=== PATIENT | male | born 1960 | race American Indian/Alaskan Native ===

== ENCOUNTER 2020-08-21 06:00 | Observation (INO) | payer OTHER ==
[~2020-08-21 06:00] MED LIST: ACETAMINOPHEN 500 MG TAB PO SCH; GABAPENTIN 300 MG CAP PO NR; LACTATED RINGERS 1,000 ML IV SCH; ceFAZolin/Water 2 GM/20 ML 2 GM/20 ML SYRINGE IV NR
--- NOTE | 2020-08-21 06:53 | Anesthesia Day of Surgery ---
Anesthesia Day of Surgery - Day of Surgery Patient Examined: Yes Patient H&P Reviewed: Yes Patient is NPO: Yes
--- NOTE | 2020-08-21 06:53 | Anesthesia Consultation ---
Anesthesia Consult and Med Hx Date of service: 08/21/20 - Airway Anesthetic Teeth Evaluation: Good ROM Head & Neck: Inadequate (very limited neck extension) Mental/Hyoid Distance: Adequate Mallampati Class: Class II Intubation Access Assessment: Possibly Difficult - Pulmonary Exam CTA: Yes - Cardiac Exam Cardiac Exam: RRR - Pre-Operative Health Status ASA Pre-Surgery Classification: ASA2 Proposed Anesthetic Plan: General - Pulmonary Hx Smoking: No Hx Asthma: No COPD: No Hx Pneumonia: No Hx Sleep Apnea: No (SNORES) - Cardiovascular System Hx Hypertension: No Hx Heart Attack/AMI: No Hx Pacemaker: No Hx Internal Defibrillator: No Hx Heart Murmur: No - Central Nervous System Hx Seizures: No Hx Back Pain: Yes (Pt has tinling and numbness in l hand and leg) Hx Psychiatric Problems: Yes - Endocrine Hx End Stage Renal Disease: No Hx Cirrhosis: No Hx Liver Disease: No - Hematic Hx Anemia: No Hx Sickle Cell Disease: No - Other Systems Hx Alcohol Use: Yes (OCC WINE) Hx Substance Use: No Hx Cancer: No
[2020-08-21] MEDS ORDERED: GELATIN SPONGE SIZE 100 TP ONE ×5 (07:04→09:24)
[2020-08-21] MEDS ORDERED: LIDOCAINE 1%/EPINEPHRINE 1:100,000 VIAL (20 ML) INFILTRATI ONE ×2 (07:04→09:23)
[2020-08-21] MEDS ORDERED: BACITRACIN 50,000 UNIT VIAL ONE (07:04)
[2020-08-21] MEDS: MIDAZOLAM 2 MG/2 ML INJ IV NR ×2 (07:05→07:30)
[2020-08-21] MEDS ORDERED: THROMBIN (RECOMBINANT) 5,000 UNIT VIAL TP ONE ×3 (07:05→09:23)
[2020-08-21] MEDS ORDERED: SODIUM CHLORIDE P/F VIAL 10 ML 10 ML ONE (07:06)
[2020-08-21] MEDS ORDERED: propofoL 200 MG/20 ML VIAL IV ONE ×8 (07:07→09:46)
[2020-08-21] MEDS ORDERED: fentaNYL 100 MCG/2 ML INJ ONE (07:08)
[2020-08-21 07:15] LABS: Hematocrit 38.5 % (35.5-45.6); Hemoglobin 13.4 gm/dl (11.8-15.2); Mean Corpuscular HGB Conc 35 % (32-34); Mean Corpuscular Volume 92 fl (84-94); Platelet Count 156 K/mm3 (140-440); Red Blood Count 4.21 M/mm3 (3.65-5.03); Red Cell Distribution Width 12.2 % (13.2-15.2)
[2020-08-21 07:29] LABS: BUN/Creatinine Ratio 25; Blood Urea Nitrogen 20 mg/dL (9-20); Calcium 8.6 mg/dL (8.4-10.2); Hemolysis Index 6
[2020-08-21] MEDS ORDERED: PHENYLEPHRINE/NS 1,000 MCG/10 ML SYRINGE (OR USE) IV ONE (08:26)
[2020-08-21] MEDS ORDERED: ePHEDrine SULFATE 50 MG/1 ML INJ ONE (08:35)
[2020-08-21] MEDS ORDERED: BACITRACIN 50,000 UNIT VIAL IR ONE (09:22)
[2020-08-21] MEDS ORDERED: NEOSTIGMINE 10MG/10 ML INJ MDV ONE (09:30)
[2020-08-21] MEDS ORDERED: GLYCOPYRROLATE 0.4 MG/2 ML INJ ONE (09:30)
[2020-08-21] MEDS ORDERED: ROCURONIUM 50 MG/5 ML INJ IV ONE (09:45)
[2020-08-21] MEDS ORDERED: LIDOCAINE MPF (2%) 20 MG/1 ML VIAL 5 ML ONE ×2 (09:45→11:31)
[2020-08-21] MEDS ORDERED: SUCCINYLCHOLINE CHLORIDE 200 MG/10 ML INJ MDV ONE (09:45)
[2020-08-21] MEDS ORDERED: LACTATED RINGERS 1,000 ML ONE (10:49)
[2020-08-21] MEDS ORDERED: HYDROmorphone 1 MG/1 ML INJ ONE ×3 (10:50→13:10)
[2020-08-21] MEDS ORDERED: ONDANSETRON 4 MG/2 ML INJ ONE (11:38)
--- NOTE | 2020-08-21 11:59 | Post Operative Note ---
Pre-op diagnosis: Cervical radiculopathy Post-op diagnosis: same Procedure: C5-6, C6-7 ACDF Anesthesia: GETA Surgeon: GABRIELLE LOVE II Estimated blood loss: minimal Pathology: none Condition: stable Disposition: PACU
--- NOTE | 2020-08-21 12:48 | XRay Report ---
XR spine cervical 2-3V Technique: Intraoperative fluoroscopic guidance was provided. Fluoroscopy time: 0.7 minutes. Fluoroscopy images: 4. Findings/Impression: Intraoperative fluoroscopic guidance for C5-C7 ACDF. Please see procedure report for further details. Signer Name: Manuel Ramos MD Signed: 08/21/2020 12:43 PM Workstation Name: [id number]
[2020-08-21] MEDS: HYDROmorphone 1 MG/1 ML INJ IV PRN ×6 (12:50→21:28)
--- NOTE | 2020-08-21 14:47 | Post Anesthesia Evaluation ---
- Post Anesthesia Evaluation Patient Participated: Yes Airway Patent: Yes Stable Respiratory Function: Yes Nausea/Vomiting: No Temp > 96.8F: Yes Pain Manageable: Yes Adequeate Hydration: Yes Anesthesia Complications: No
[2020-08-21] MEDS ORDERED: oxyCODONE /ACETAMINOPHEN 5-325MG TAB PO PRN (15:10)
[2020-08-21] MEDS ORDERED: ACETAMINOPHEN 325 MG TAB PO PRN (15:10)
[2020-08-21] MEDS ORDERED: ONDANSETRON 4 MG/2 ML INJ IV PRN (15:10)
[2020-08-21] MEDS: SODIUM CHLORIDE 0.9% 1000 ML 1,000 ML IV SCH ×2 (16:42→23:32)
[2020-08-21] MEDS ORDERED: ceFAZolin/Water 2 GM/20 ML 2 GM/20 ML SYRINGE IV SCH (17:00)
[2020-08-22] MEDS: SENNOSIDES 8.6 MG TAB PO SCH ×2 (00:56→08:00)
[2020-08-22] MEDS: DOCUSATE SODIUM 100 MG CAP PO SCH ×2 (00:56→08:00)
[2020-08-22] MEDS: HYDROmorphone 1 MG/1 ML INJ IV PRN ×2 (01:46→07:33)
[2020-08-22 08:27] VITALS: BP 150/91
--- NOTE | 2020-08-22 10:43 | Progress Note ---
Assessment and Plan 59 y/o M POD1 s/p C5-6, C6-7 ACDF -discharge home -f/u 2 weeks for wound check Subjective Date of service: 08/22/20 Principal diagnosis: Cervical radiculopathy Interval history: NAEON; pt denies present concerns. He reports significant improvement in his hand strength. He denies significant pain Objective - Exam Narrative Exam: seen and examined no acute distress A&Ox3 CNII-XII intact MAEW without focal deficit incision c/d/i, drain patent - Vital Sign Vital Signs - 12hr 08/21/20 08/21/20 08/22/20 23:25 23:39 00:25 Temperature 97.5 F L Pulse Rate 97 H Respiratory 17 19 17 Rate Blood Pressure 136/75 O2 Sat by Pulse 97 Oximetry 08/22/20 08/22/20 08/22/20 01:46 02:16 05:20 Temperature 98.4 F Pulse Rate 97 H Respiratory 17 17 20 Rate Blood Pressure 134/80 O2 Sat by Pulse 95 Oximetry 08/22/20 07:48 Temperature 98.4 F Pulse Rate 93 H Respiratory 18 Rate Blood Pressure 150/91 O2 Sat by Pulse 99 Oximetry - Laboratory Findings CBC and BMP: 08/21/20 07:00 08/21/20 07:00 Abnormal Lab Findings: Abnormal Labs 08/21/20 08/21/20 08/21/20 07:00 07:00 07:09 MCHC 35 H RDW 12.2 L Glucose 192 H POC Glucose 177 H 08/21/20 08/21/20 13:08 21:32 MCHC RDW Glucose POC Glucose 191 H 243 H
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
== END 2020-08-22 15:39 | disposition home or self-care (01) ==
LOC: OR 06:00 → 3B-SURG 12:00
PROVIDERS: ADMIT Psychiatry & Neurology Neurology; ATTEND Psychiatry & Neurology Neurology
DX: M54.12 Radiculopathy, cervical region (principal); M48.062 Spinal stenosis, lumbar region with neurogenic claudication; M50.23 Other cervical disc displacement, cervicothoracic region; M54.16 Radiculopathy, lumbar region; E11.9 Type 2 diabetes mellitus without complications; F32.9 Major depressive disorder, single episode, unspecified; G89.29 Other chronic pain; V87.7XXD Person injured in collision between other specified motor vehicles (traffic), subsequent encounter
CPT/HCPCS: 22551; 22552; 22853; 36415; 72040; 80048; 82962; 85027; 86850; 86900; 86901; 96361; 96365; 96366; 96375; 96376; A4649; C1713; G0378; J0330; J0690; J1170; J2250; J2370; J2704; J2710; J3010; J7030; J7120; L8699; J2405